=== PATIENT | female | born 1975 | race Caucasian/White ===

== ENCOUNTER 2017-03-07 17:21 | Emergency (ER) | payer OTHER ==
[2017-03-07 17:40] VITALS: RESP 20; TEMP 97.4
[2017-03-07] MEDS ORDERED: GLUCAGON HYDROCHLORIDE 1 MG PDS IV ONE (17:40)
[2017-03-07] MEDS ORDERED: GLUCAGON HYDROCHLORIDE 1 MG PDS ONE (17:50)
[2017-03-07 18:54] VITALS: BP 162/78; PULSE 83; O2SAT 98
== END 2017-03-07 18:45 | disposition short-term general hospital (02) ==
LOC: ED 17:21
DX: K22.2 Esophageal obstruction (principal); T18.128A Food in esophagus causing other injury, initial encounter
CPT/HCPCS: 99284 ×2; J1610